=== PATIENT | male | born 1985 | race Caucasian/White ===

== ENCOUNTER 2020-02-08 10:00 | Emergency (ER) | payer OTHER ==
[2020-02-08 10:10] VITALS: Ht 190.5 cm
[2020-02-08 10:45] LABS: BASOPHILS 0.5 % (0-2); EOSINOPHILS 0.7 % (0-7); HEMATOCRIT 47.5 % (42.0-54.0); IMMATURE GRANULOCYTES 0.7 % (0-5); LYMPHOCYTES 27.6 % (15-50); MCHC 33.7 g/dL (31.0-37.0); MCV 86.1 fL (80.0-100.0); MEAN PLATELET VOLUME 10.2 fL (7.4-10.4); MONOCYTES 6.8 % (2-11); NEUTROPHILS 63.7 % (40-80); PLATELET COUNT 288 10x3/uL (130-400); RBC 5.52 10x6/uL (4.20-6.10); RDW 13.1 % (11.5-14.5); WBC 10.1 10x3/uL (4.8-10.8)
[2020-02-08 11:00] LABS: CALC OSMOLALITY 274 mosm/kg (275-300); CALCIUM 9.5 mg/dL (8.5-10.1); CARBON DIOXIDE 27.1 mmol/L (21.0-32.0); CHLORIDE - SERUM 104 mmol/L (98-107); CREATININE - SERUM 1.1 mg/dL (0.6-1.3); GLUCOSE 92 mg/dL (74-106); SODIUM 138 mmol/L (136-145); UREA NITROGEN 11 mg/dL (7-18); eGFR NON AFRICAN AMERICAN 82 mL/min (90-120)
[2020-02-08 11:06] LABS: ALBUMIN 4.4 g/dL (3.4-5.0); ALKALINE PHOSPHATASE 91 U/L (30-120); ALT (SGPT) 67 U/L (10-68); BILIRUBIN - TOTAL 0.47 mg/dL (0.2-1.3); PROTEIN - SERUM 7.8 g/dL (6.4-8.2)
[2020-02-08 11:23] VITALS: BP 131/70
== END 2020-02-08 11:23 | disposition home or self-care (01) ==
LOC: D.ER 10:00
PROVIDERS: Family Medicine
DX: M25.561 Pain in right knee (principal); F31.9 Bipolar disorder, unspecified; F43.10 Post-traumatic stress disorder, unspecified; M79.10 Myalgia, unspecified site; F25.9 Schizoaffective disorder, unspecified

== ENCOUNTER 2020-03-04 16:02 | Emergency (ER) | payer OTHER ==
[~2020-03-04] VITALS: Ht 190.5 cm; Wt 100.0 kg
[2020-03-04 16:17] VITALS: BP 144/62; Ht 190.5 cm; Wt 100.0 kg
[2020-03-04 16:48] LABS: BASOPHILS 0.3 % (0-2); EOSINOPHILS 3.5 % (0-7); HEMATOCRIT 43.8 % (42.0-54.0); HEMOGLOBIN 15.1 g/dL (13.5-17.5); IMMATURE GRANULOCYTES 0.8 % (0-5); LYMPHOCYTES 23.8 % (15-50); MCH 28.7 pg (26.0-34.0); MCHC 34.5 g/dL (31.0-37.0); MCV 83.1 fL (80.0-100.0); MEAN PLATELET VOLUME 10.6 fL (7.4-10.4); MONOCYTES 10.6 % (2-11); PLATELET COUNT 284 10x3/uL (130-400); RBC 5.27 10x6/uL (4.20-6.10); RDW 12.9 % (11.5-14.5); WBC 11.6 10x3/uL (4.8-10.8)
[2020-03-04 17:03] LABS: CALC OSMOLALITY 280 mosm/kg (275-300); CALCIUM 9.5 mg/dL (8.5-10.1); CARBON DIOXIDE 26.6 mmol/L (21.0-32.0); CHLORIDE - SERUM 101 mmol/L (98-107); CREATININE - SERUM 1.1 mg/dL (0.6-1.3); GLUCOSE 104 mg/dL (74-106); POTASSIUM - SERUM 3.2 mmol/L (3.5-5.1); SODIUM 139 mmol/L (136-145); UREA NITROGEN 22 mg/dL (7-18); eGFR NON AFRICAN AMERICAN 82 mL/min (90-120)
[2020-03-04 17:24] LABS: ALBUMIN 4.4 g/dL (3.4-5.0); ALKALINE PHOSPHATASE 77 U/L (30-120); ALT (SGPT) 45 U/L (10-68); BILIRUBIN - TOTAL 0.63 mg/dL (0.2-1.3); MAGNESIUM - SERUM 1.7 mg/dL (1.8-2.4); PROTEIN - SERUM 7.3 g/dL (6.4-8.2)
[2020-03-04 17:41] LABS: CKMB 18.9 U/L (0.0-3.6); CREATINE KINASE 1883 UL (21-232); TROPONIN-I < 0.017 ng/mL (0.000-0.060)
[2020-03-04] MEDS ORDERED: ZPAK PO (18:11)
[2020-03-04] MEDS ORDERED: AUGMENTIN 875-11 TAB PO (18:11)
== END 2020-03-04 18:27 | disposition left against medical advice (07) ==
LOC: D.ER 16:02
PROVIDERS: Family Medicine
DX: J18.9 Pneumonia, unspecified organism (principal); E86.0 Dehydration; E87.6 Hypokalemia; R09.02 Hypoxemia; D72.829 Elevated white blood cell count, unspecified; M62.82 Rhabdomyolysis; F41.9 Anxiety disorder, unspecified; F43.10 Post-traumatic stress disorder, unspecified

== ENCOUNTER 2020-03-17 19:01 | Emergency (ER) | payer OTHER ==
[~2020-03-17] VITALS: Ht 190.5 cm; Wt 120.5 kg
[~2020-03-17 19:01] MED LIST: AUGMENTIN 875-11 TAB PO; ZPAK PO
[2020-03-17 19:10] VITALS: Ht 190.5 cm; Wt 120.5 kg
[2020-03-17] MEDS ORDERED: TRAZODONE HCL150 MG PO (19:15)
[2020-03-17] MEDS ORDERED: CELEXA20 MG PO (19:15)
[2020-03-17] MEDS ORDERED: HYDROCODON-ACE1 EAC7 PO (19:16)
[2020-03-17 20:10] LABS: BILIRUBIN NEGATIVE (NEGATIVE); KETONE NEGATIVE (NEGATIVE); NITRITE NEGATIVE (NEGATIVE); UROBILINOGEN NORMAL (NORMAL)
[2020-03-17 20:31] LABS: UDS - AMPHET NEGATIVE QUAL (NEGATIVE); UDS - BARB NEGATIVE QUAL (NEGATIVE); UDS - BENZO NEGATIVE QUAL (NEGATIVE); UDS - COCAINE NEGATIVE QUAL (NEGATIVE); UDS - OPIATE NEGATIVE QUAL (NEGATIVE); UDS - PCP NEGATIVE QUAL (NEGATIVE); UDS - THC NEGATIVE QUAL (NEGATIVE)
[2020-03-17 21:53] LABS: BASOPHILS 0.4 % (0-2); HEMATOCRIT 48.7 % (42.0-54.0); HEMOGLOBIN 16.8 g/dL (13.5-17.5); IMMATURE GRANULOCYTES 0.5 % (0-5); LYMPHOCYTES 27.4 % (15-50); MCH 29.3 pg (26.0-34.0); MCHC 34.5 g/dL (31.0-37.0); MEAN PLATELET VOLUME 10.6 fL (7.4-10.4); MONOCYTES 8.3 % (2-11); NEUTROPHILS 62.4 % (40-80); PLATELET COUNT 296 10x3/uL (130-400); RBC 5.73 10x6/uL (4.20-6.10); RDW 13.3 % (11.5-14.5); WBC 11.3 10x3/uL (4.8-10.8)
[2020-03-17 21:57] LABS: CALC OSMOLALITY 272 mosm/kg (275-300); CALCIUM 9.3 mg/dL (8.5-10.1); CARBON DIOXIDE 28.4 mmol/L (21.0-32.0); CHLORIDE - SERUM 101 mmol/L (98-107); CREATININE - SERUM 0.9 mg/dL (0.6-1.3); GLUCOSE 98 mg/dL (74-106); POTASSIUM - SERUM 3.7 mmol/L (3.5-5.1); SODIUM 136 mmol/L (136-145); UREA NITROGEN 15 mg/dL (7-18); eGFR NON AFRICAN AMERICAN > 90 mL/min (90-120)
[2020-03-17 22:04] LABS: ALBUMIN 4.5 g/dL (3.4-5.0); ALKALINE PHOSPHATASE 91 U/L (30-120); ALT (SGPT) 57 U/L (10-68); C-REACTIVE PROTEIN 0.8 mg/dL (0.0-0.9); CREATINE KINASE 113 UL (21-232); LIPASE 970 U/L (73-393)
[2020-03-17] MEDS ORDERED: BUTALB-APAP-CA1 EACH PO (22:40)
[2020-03-17 23:44] VITALS: BP 123/72
== END 2020-03-18 00:05 | disposition home or self-care (01) ==
LOC: D.ER 19:01
PROVIDERS: Family Medicine
DX: R51 Headache (principal); R10.9 Unspecified abdominal pain; R11.0 Nausea; R06.02 Shortness of breath; R07.9 Chest pain, unspecified

== ENCOUNTER 2020-09-26 01:20 | Inpatient (IN) | payer OTHER ==
[~2020-09-26] VITALS: Ht 198.1 cm; Wt 127.0 kg
[~2020-09-26 01:20] MED LIST changes: +BUTALB-APAP-CA1 EACH PO; +CELEXA20 MG PO; +ELIQUIS5 MG PO; +HYDROCODON-ACE1 EAC7 PO; +TRAZODONE HCL150 MG PO; +ULTRAM50 MG PO; +XARELTO15 MG PO
[2020-09-26 01:56] LABS: BASOPHILS 0.4 % (0-2); EOSINOPHILS 1.4 % (0-7); HEMATOCRIT 43.4 % (42.0-54.0); HEMOGLOBIN 14.7 g/dL (13.5-17.5); IMMATURE GRANULOCYTES 0.5 % (0-5); LYMPHOCYTE ABS# 2.85 10x3/uL (1.32-3.57); LYMPHOCYTES 36.1 % (15-50); MCH 28.2 pg (26.0-34.0); MCHC 33.9 g/dL (31.0-37.0); MCV 83.3 fL (80.0-100.0); MEAN PLATELET VOLUME 10.4 fL (7.4-10.4); MONOCYTES 11.1 % (2-11); NEUTROPHIL ABS# 3.99 10x3/uL (1.78-5.38); NEUTROPHILS 50.5 % (40-80); RBC 5.21 10x6/uL (4.20-6.10); RDW 13.8 % (11.5-14.5); WBC 7.9 10x3/uL (4.8-10.8)
[2020-09-26 02:00] LABS: PLATELET COUNT 247 10x3/uL (130-400)
[2020-09-26 02:06] LABS: APTT 43.3 SECONDS (22.8-39.4); INR 2.83 (0.85-1.17); PROTIME 27.7 SECONDS (11.6-15.0)
[2020-09-26 02:07] LABS: CALC OSMOLALITY 268 mosm/kg (275-300); CALCIUM 8.9 mg/dL (8.5-10.1); CARBON DIOXIDE 24.8 mmol/L (21.0-32.0); CHLORIDE - SERUM 99 mmol/L (98-107); GLUCOSE 92 mg/dL (74-106); POTASSIUM - SERUM 3.6 mmol/L (3.5-5.1); SODIUM 134 mmol/L (136-145); UREA NITROGEN 16 mg/dL (7-18); eGFR NON AFRICAN AMERICAN > 90 mL/min (90-120)
[2020-09-26 02:10] LABS: ALBUMIN 3.9 g/dL (3.4-5.0); ALKALINE PHOSPHATASE 88 U/L (30-120); ALT (SGPT) 35 U/L (10-68); BILIRUBIN - TOTAL 0.29 mg/dL (0.2-1.3); CREATINE KINASE 78 UL (21-232); PROTEIN - SERUM 7.5 g/dL (6.4-8.2)
[2020-09-26 02:16] LABS: D-DIMER-QUANTITATIVE 2.1 ug/mLFEU (0.20-0.54)
--- NOTE | 2020-09-26 02:22 | NUR ---
CRITICAL LABS GIVEN TO PROVIDER.
--- NOTE | 2020-09-26 05:10 | NUR ---
PATIENT REPORT ATTEMPTED AT THIS TIME.
[2020-09-26 06:09] VITALS: BP 106/51; BMI 32.4
[2020-09-26 09:17] VITALS: BP 120/72
--- NOTE | 2020-09-26 10:30 | NUR ---
GAVE PATIENT MORPHINE 4 MG IVP OVER 3 MINUTES. TOLERATED WITH NO PROBLEMS. IV INTACT. CALL LIGHT WITHIN REACH.
[2020-09-26 12:08] VITALS: BP 128/75
--- NOTE | 2020-09-26 14:46 | NUR ---
NOTIFIED DR. STROUD OF POST TIBIAL DVT AND POPLITEAL DVT. WAS CALLED BY RADIOLOGY PHYSICIAN. PATIENT IS ALREADY ON LOVENOX. NO NEW ORDERS AT THIS TIME.
--- NOTE | 2020-09-26 15:00 | NUR ---
PATIENT STATES IV IS WET FROM SHOWER. FLUSHED IV AND BLOOD DRAWN BACK. IV WORKING FINE. ASKED PATIENT THE IV WAS BOTHERING OR HURTING HIM I COULD CHANGE IT, BUT THAT IT IS WORKING FINE. STATED NO HE DIDNT NEED IT CHANGED LONG IT IS OK. CHANGED DRESSING ON IV. ALSO EXPLAINED I WAS TOLD HE NEEDED PAIN MEDS. STATED " IT WOULD BE NICE." GAVE PATIENT 4 MG IVP OVER 4 MIN AT THIS TIME. NO OTHER COMPLAINTS. CALL LIGHT WITHIN REACH.
--- NOTE | 2020-09-26 16:12 | NUR ---
GEOLOGY FACULTY MEMBER STATED THAT PATIENT WANTS HIS MEDS SO HE CAN JUST GO TO SLEEP. EXPLAINED HE DOESNT HAVE ANY MEDS AND THAT IT IS NOT TIME FOR PAIN MEDS AT THIS TIME. ASKED GEOLOGY FACULTY MEMBER TO TELL PATIENT. STILL WAITING PATIENT FINANCIAL COUNSELOR BACK FROM ON NICOTINE PATCH.
[2020-09-26 16:49] VITALS: BP 124/72
--- NOTE | 2020-09-26 18:55 | NUR ---
PATIENT STATED HE WANTED AN INFORMAL RESOLUTION FORM. EXPLAINED IT IS A FORM FOR COMPLAINTS. TOLD PATIENT THAT IF HE HAD A COMPLAINT HE COULD SPEAK WITH MOTOR INSPECTION MECHANIC. DIALED 1441 AND TOLD HIM TO SPEAK WITH JOCE. LEFT THE ROOM SO PATIENT COULD HAVE PRIVACY.
--- NOTE | 2020-09-26 19:15 | NUR ---
JENS HOBSON CALLED AND STATED THAT PATIENT WAS COMPLAINING ABOUT NOT GETTING PAIN MED EARLIER AND THAT HE WANTED A FORM FOR COMPLAINTS. EXPLAINED THAT WHEN HE ASKED FOR PAIN MEDS IT WASNT TIME TO GIVE THEM AND THAT I HAD ASKED THE SUBMARINE DIVER TO LET HIM KNOW. ALSO I DIDNT KNOW WHAT FORM HE WAS TALKING ABOUT AND THAT SHE SAID JUST TO GIVE HIM A PIECE OF PAPER SO THAT HE COULD WRITE DOWN HIS COMPLAINTS AND GIVE THEM TO THE FIRE SUPPRESSION CAPTAIN. ALSO THAT I COULD WRITE MY SIDE DOWN ON THE PAPER WELL. I STATED I WOULD RATHER NOT WRITE DOWN MY SIDE BC I HAVENT DONE ANYTHING THAT I AM NOT ABLE TO GIVE HIM HIS PAIN MEDS IF IT ISNT TIME AND THAT IF HE HAS OTHER COMPLAINTS I DID MY BEST TO TAKE CARE OF HIM WITH THE STAFF THAT WE HAD AND THE PATIENTS I HAD.
[2020-09-26 19:32] VITALS: BP 135/84
[2020-09-26 20:13] VITALS: BP 115/76
[2020-09-27 04:57] VITALS: BP 113/67
--- NOTE | 2020-09-27 06:00 | NUR ---
PT RESTED PEACEFULLY THROUGHOUT NIGHT. BROUGHT PT COFFEE. NO OTHER NEEDS. WILL CONTINUE TO MONITOR.
--- NOTE | 2020-09-27 06:27 | NUR ---
PT HAS HAD TWO MORE BOWEL MOVEMENTS SINCE NG CLAMPED AND MINERAL GIVEN FOR A TOTAL OF THREE BM'S. FIRST TWO BM'S WERE SMALL HARD STOOLS, LAST BM MEDIUM AMOUNT OF SOFT STOOL. NG HAS BEEN CLAMPED SINCE YESTERDAY AND PT HAS HAD NO NAUSEA.
[2020-09-27 06:46] LABS: BASOPHILS 0.6 % (0-2); EOSINOPHILS 1.7 % (0-7); HEMATOCRIT 46.9 % (42.0-54.0); HEMOGLOBIN 15.4 g/dL (13.5-17.5); IMMATURE GRANULOCYTES 0.4 % (0-5); LYMPHOCYTE ABS# 2.28 10x3/uL (1.32-3.57); LYMPHOCYTES 33.1 % (15-50); MCH 27.8 pg (26.0-34.0); MCHC 32.8 g/dL (31.0-37.0); MCV 84.7 fL (80.0-100.0); MEAN PLATELET VOLUME 11.1 fL (7.4-10.4); NEUTROPHIL ABS# 3.79 10x3/uL (1.78-5.38); NEUTROPHILS 55.2 % (40-80); PLATELET COUNT 265 10x3/uL (130-400); RBC 5.54 10x6/uL (4.20-6.10); RDW 13.7 % (11.5-14.5); WBC 6.9 10x3/uL (4.8-10.8)
[2020-09-27 06:56] LABS: ALKALINE PHOSPHATASE 93 U/L (30-120); ALT (SGPT) 35 U/L (10-68); BILIRUBIN - TOTAL 0.27 mg/dL (0.2-1.3); CALC OSMOLALITY 267 mosm/kg (275-300); CALCIUM 9.2 mg/dL (8.5-10.1); CARBON DIOXIDE 26.8 mmol/L (21.0-32.0); CHLORIDE - SERUM 100 mmol/L (98-107); CREATININE - SERUM 0.9 mg/dL (0.6-1.3); GLUCOSE 90 mg/dL (74-106); PHOSPHOROUS 3.6 mg/dL (2.5-4.9); PROTEIN - SERUM 7.2 g/dL (6.4-8.2); SODIUM 134 mmol/L (136-145); UREA NITROGEN 12 mg/dL (7-18); eGFR NON AFRICAN AMERICAN > 90 mL/min (90-120)
[2020-09-27 06:58] LABS: POTASSIUM - SERUM 4.5 mmol/L (3.5-5.1)
--- NOTE | 2020-09-27 07:15 | NUR ---
ASKED PT IF HE WOULD LIKE TO TALK TO CEMENT GUN OPERATOR JACK THIS MORNING CONCERNING THE COMPLAINTS HE HAD AT SHIFT CHANGE YESTERDAY. PT STATED HE NO LONGER HAD AN ISSUE AND DID NOT WANT TO MAKE ANY COMPLAINTS. I ASKED HIM IF EVERYTHING HAD BEEN RESOLVED AND HE STATED "YES". THIS CONVERSATION WAS WITNESSED BY DAYSHIFT NURSE BENEDICTO DURING OUR BEDSIDE SHIFT REPORT.
--- NOTE | 2020-09-27 08:00 | NUR ---
ASSESSMENT PER FLOW SHEET. PATIENT IS WITHOUT DISTRESS.ANXIOUS THIS AM. MONITOR
[2020-09-27 09:04] VITALS: BP 122/74
[2020-09-27 10:25] LABS: INR 1.07 (0.85-1.17); PROTIME 12.9 SECONDS (11.6-15.0)
[2020-09-27 12:21] VITALS: BP 131/68
--- NOTE | 2020-09-27 15:46 | NUR ---
TALKED WITH ARMANI CARTWRIGHT APN RE.. PAIN IN FOOT. PATIENT WANTS TO TRY SOMETHING ELSE FOR PAIN,SEE ORDERS
[2020-09-27 16:13] VITALS: BP 125/74
[2020-09-27 19:51] VITALS: BP 123/74
[2020-09-28 04:44] VITALS: BP 121/89
[2020-09-28 04:52] LABS: BASOPHILS 0.5 % (0-2); EOSINOPHILS 1.9 % (0-7); HEMATOCRIT 46.9 % (42.0-54.0); HEMOGLOBIN 15.5 g/dL (13.5-17.5); IMMATURE GRANULOCYTES 0.8 % (0-5); LYMPHOCYTE ABS# 2.69 10x3/uL (1.32-3.57); LYMPHOCYTES 42.2 % (15-50); MCH 27.7 pg (26.0-34.0); MCV 83.8 fL (80.0-100.0); MEAN PLATELET VOLUME 10.8 fL (7.4-10.4); NEUTROPHIL ABS# 2.78 10x3/uL (1.78-5.38); NEUTROPHILS 43.6 % (40-80); PLATELET COUNT 272 10x3/uL (130-400); RDW 13.6 % (11.5-14.5); WBC 6.4 10x3/uL (4.8-10.8)
[2020-09-28 05:08] LABS: CALC OSMOLALITY 269 mosm/kg (275-300); CARBON DIOXIDE 26.8 mmol/L (21.0-32.0); CHLORIDE - SERUM 100 mmol/L (98-107); GLUCOSE 87 mg/dL (74-106); PHOSPHOROUS 3.6 mg/dL (2.5-4.9); POTASSIUM - SERUM 3.9 mmol/L (3.5-5.1); SODIUM 136 mmol/L (136-145); UREA NITROGEN 11 mg/dL (7-18); eGFR NON AFRICAN AMERICAN > 90 mL/min (90-120)
[2020-09-28 05:09] LABS: INR 1.09 (0.85-1.17)
--- NOTE | 2020-09-28 07:02 | NUR ---
Patient had pain that was managed with the prescribed pain medication, he took a shower this morning.
--- NOTE | 2020-09-28 07:38 | NUR ---
MEDS ORDERED FOR NAUSEA. PATIENT HAVING BROWN COLORED EMESIS
[2020-09-28 09:07] VITALS: BP 117/60
--- NOTE | 2020-09-28 10:55 | NUR ---
PATIENT ANGRY ABOUT CARE. HE STATES WE ARE NOT DOING ANYTHING FOR HIM. JACK SANCHEZ RN EXPLAINED COUMADIN AND LABS AND LEVELS TO HIM. HE WAS ALSO EXPLAINED RISK OF HIM LEAVING AMA. HE STATES HE KNOWS HE COULD FROM BLOOD CLOTS. AMA FORM SIGNED. [facility]FFERENT TREAT[facility] OPTIONS.ATTEMPTED TO CALL ARMANI CARTWRIGHT APN,KELLY ADAMES. WILL ATTEMPT CALL AGAIN.
[2020-09-28] MEDS ORDERED: TRAZODONE HCL300 MG PO (11:23)
[2020-09-28] MEDS ORDERED: TOFRANIL25 MG PO (11:23)
[2020-09-28] MEDS ORDERED: ABILIFY10 MG PO (11:24)
--- NOTE | 2020-09-28 11:24 | NUR ---
1105-CALLED TO ROOM TO DISCUSS PT GOING AMA. STATES WE ARE NOT CONTROLLING HIS PAIN TO MEET HIS NEEDS NOR DOING ANYTHING REGARDING HIS BLOOD CLOT IN HIS LEGS. EXPLAINED FREQ OF PAIN MEDS-NORCO AND MORPHINE- AND REGIMEN OF COUMADIN AND TAKING TIME TO GET INR UP TO GOAL ( TODAY IS 1.09 WITH GOAL OF 2.5). AMA FORM SIGNED AND WITNESSED. ASKED TO PLEASE RESTART HIS PTSD MEDS-CALLED PHARMACY X 2-[facility] DRUG LIST. WILL KEEP PT INFORMED 1120-GOT CURRENT LIST AND TALKED TO KARISSA BEST-INPUTTED TRAZAONE, ABILITY, AND IMIPRAMINE INTO MED REC TO BE REVIEWED. PT AWARE.
[2020-09-28 12:59] VITALS: BP 141/75; BP 91/57
--- NOTE | 2020-09-28 13:00 | NUR ---
IV RESITED TO RIGHT WRIST, 22G.
[2020-09-28 17:18] VITALS: BP 121/74
--- NOTE | 2020-09-28 19:25 | NUR ---
DECIDED TO STAY TODAY. PAIN BETTER CONTROLLED WITH GEOLOGICAL SURVEY FIELD ASSISTANT.CONT PLAN OF CARE
[2020-09-28 20:06] VITALS: BP 122/82
[2020-09-29 00:27] VITALS: BP 118/76
--- NOTE | 2020-09-29 02:05 | NUR ---
Patient has appeared to havew his pain well managed with the YARD WAREHOUSE WORKER pump, he has voiced no concerns. His mother came tomight and brought him some food. He did complain of nausea but it has been managed with the prescribed Zofran. He is currently resting in bed with his eyes closed.
[2020-09-29 04:00] VITALS: BP 128/64
[2020-09-29 06:15] LABS: BASOPHILS 0.7 % (0-2); EOSINOPHILS 2.3 % (0-7); HEMATOCRIT 44.9 % (42.0-54.0); HEMOGLOBIN 14.5 g/dL (13.5-17.5); IMMATURE GRANULOCYTES 0.5 % (0-5); LYMPHOCYTE ABS# 2.71 10x3/uL (1.32-3.57); LYMPHOCYTES 44.6 % (15-50); MCH 27.4 pg (26.0-34.0); MCHC 32.3 g/dL (31.0-37.0); MCV 84.9 fL (80.0-100.0); MEAN PLATELET VOLUME 10.9 fL (7.4-10.4); MONOCYTES 9.9 % (2-11); NEUTROPHIL ABS# 2.55 10x3/uL (1.78-5.38); PLATELET COUNT 245 10x3/uL (130-400); RBC 5.29 10x6/uL (4.20-6.10); RDW 13.8 % (11.5-14.5); WBC 6.1 10x3/uL (4.8-10.8)
[2020-09-29 06:29] LABS: CALC OSMOLALITY 271 mosm/kg (275-300); CALCIUM 8.9 mg/dL (8.5-10.1); CARBON DIOXIDE 28.7 mmol/L (21.0-32.0); CHLORIDE - SERUM 102 mmol/L (98-107); CREATININE - SERUM 0.9 mg/dL (0.6-1.3); GLUCOSE 85 mg/dL (74-106); PHOSPHOROUS 4.4 mg/dL (2.5-4.9); POTASSIUM - SERUM 4.4 mmol/L (3.5-5.1); SODIUM 137 mmol/L (136-145); UREA NITROGEN 11 mg/dL (7-18); eGFR NON AFRICAN AMERICAN > 90 mL/min (90-120)
[2020-09-29 06:45] LABS: INR 1.46 (0.85-1.17); PROTIME 16.4 SECONDS (11.6-15.0)
[2020-09-29 08:12] VITALS: BP 125/82
--- NOTE | 2020-09-29 08:45 | NUR ---
PATIENT IN BED WITH IV INTACT. NO COMPLAINTS OR SIGNS OF DISTRESS. CALL LIGHT WITHIN REACH.
[2020-09-29 12:24] VITALS: BP 128/84
[2020-09-29 17:04] VITALS: BP 119/79
--- NOTE | 2020-09-29 18:45 | NUR ---
PATIENT IN BED WITH IV INTACT. NO COMPLAINTS OR SIGNS OF DISTRESS. CALL LIGHT WITHIN REACH.
[2020-09-29 20:18] VITALS: BP 102/60; BP 129/83
[2020-09-30 00:29] VITALS: BP 134/78
[2020-09-30 04:00] VITALS: BP 142/84
--- NOTE | 2020-09-30 05:16 | NUR ---
Patient has had pain controlled with the prescribed pain medication, he did not sleep much the night, he is currently getting a shower.
[2020-09-30 06:56] LABS: BASOPHILS 0.3 % (0-2); EOSINOPHILS 1.7 % (0-7); HEMATOCRIT 44.8 % (42.0-54.0); HEMOGLOBIN 14.7 g/dL (13.5-17.5); IMMATURE GRANULOCYTES 0.2 % (0-5); LYMPHOCYTE ABS# 2.78 10x3/uL (1.32-3.57); LYMPHOCYTES 46.2 % (15-50); MCH 27.7 pg (26.0-34.0); MCHC 32.8 g/dL (31.0-37.0); MCV 84.5 fL (80.0-100.0); MEAN PLATELET VOLUME 10.9 fL (7.4-10.4); MONOCYTES 8.5 % (2-11); NEUTROPHILS 43.1 % (40-80); PLATELET COUNT 239 10x3/uL (130-400); RDW 13.7 % (11.5-14.5)
[2020-09-30 07:07] LABS: INR 1.73 (0.85-1.17); PROTIME 18.8 SECONDS (11.6-15.0)
[2020-09-30 07:17] LABS: ANION GAP 12.8 mmol/L (8-16); CARBON DIOXIDE 26.3 mmol/L (21.0-32.0); MAGNESIUM - SERUM 1.9 mg/dL (1.8-2.4); PHOSPHOROUS 4.7 mg/dL (2.5-4.9); POTASSIUM - SERUM 4.1 mmol/L (3.5-5.1)
[2020-09-30 07:19] LABS: CREATININE - SERUM 1.2 mg/dL (0.6-1.3)
--- NOTE | 2020-09-30 08:30 | NUR ---
PATIENT ASSESSMENT COMPLETE, VS STABLE. SAYS HE IS NAUSEATED. ZOFRAN GIVEN. ALSO STATED THAT IT IS GETTING HARDER TO BREATHE. O2 SAT 100 % ON RA. NO WHEEZING OR COUGHING. CHEST SOUNDS CLEAR. NO SIGNS OF SOB OR ANY PROBLEMS BREATHING AT THIS TIME. EXPLAINED TO PATIENT TO CONTINUE IS AND TO CONTINUE TO GET OUT OF BED AND MOVE AROUND LIKE HE HAS BEEN DOING AND THAT I WOULD NOTIFY ORACLE SECURITY CONSULTANT WHEN I SEE HER. VERBALIZED UNDERSTANDING. FAMILY AT BEDSIDE. ALSO WONDERING WHY PATIENT IS GETTING NAUSEATED AND WHY HE IS HAVING HEADACHES. EXPLAINED IT COULD BE FROM THE DILAUDID BUT TO ALSO MENTION IT TO THE PHYSICIAN. VERBALIZED UNDERSTANDING. WILL CONTINUE TO MONITOR. CALL IGHT WITHIN REACH.
[2020-09-30 08:31] VITALS: BP 114/75
--- NOTE | 2020-09-30 08:55 | NUR ---
ORDERED BISCUITS AND GRAVY THROUGH DIETARY MESSAGE AT THIS TIME PER PATIENT REQUEST.
--- NOTE | 2020-09-30 09:05 | NUR ---
DR. JONES CAME BY AND STATED SHE SAW THE RASH ON THE PATIENTS SHOULDER AND BUMPS ON THE CHEST. SHE SAID IT COULD BE CAUSED BY THE COUMADIN BUT THAT SHE DIDNT THINK SO BECAUSE IT USUSALLY DOESNT START IN THAT AREA. ALSO ASKED TO NOTIFY NILAY BEST ABOUT IT. LET HER KNOW ABOUT PATIENTS COMPLAINTS OR NAUSEA AND SAYING ITS HARDER FOR HIM TO BREATHE. NO NEW ORDERS AT THIS TIME. PATIENT SITTING UP IN BED EATING BREAKFAST WITH NO COMPLAINTS OR PROBLEMS. CALL LIGHT WITHIN REACH.
[2020-09-30 12:52] VITALS: BP 134/83
--- NOTE | 2020-09-30 12:55 | NUR ---
PATIENT TOOK MAG CITRATE. STATED HE DID NOT WANT SUPPOSITORY AT THIS TIME. WOULD WAIT TO SEE IF NEEDED AFTER MAG CITRATE. NO COMPLAINTS OR SIGNS OF DISTRESS. CALL LIGHT WITHIN REACH.
[2020-09-30 13:18] VITALS: Ht 198.1 cm; Wt 127.0 kg
--- NOTE | 2020-09-30 14:45 | NUR ---
PATIENT GETTING 1 TIME DOSE OF TORADOL FOR MIGRAINE. STATED HE HAD A MIGRAINE AND TYLENOL IS NOT WORKING ANYMORE. CALLED NILAY. ORDER RECIEVED.
--- NOTE | 2020-09-30 16:57 | NUR ---
PATIENT UP AMBULATING IN IBARRA AT THIS TIME.
[2020-09-30 16:58] VITALS: BP 133/76
--- NOTE | 2020-09-30 18:23 | NUR ---
PATIENT HAD BM. REFUSED SUPPOSITORY. ZOFRAN DRIP STARTED. IV INTACT. NO COMPLAINTS OR SIGNS OF DISTRESS. CALL LIGHT WITHIN REACH.
[2020-09-30 20:00] VITALS: BP 113/67
--- NOTE | 2020-09-30 23:00 | NUR ---
PT C/O NAUSEA AFTER HE ATE 6 ICE CREAMS AND A SANDWICH TRAY. PT IS ON A ZOFRAN DRIP. EXPLAINED THAT HE IS ALREADY GETTING CONTINUOUS IV MEDS FOR NAUSEA AND SUGGESTED MAYBE HE SHOULD QUIT EATING SO MUCH. NO OTHER NEEDS. PT STATES HE IS GOING TO TRY TO GO TO SLEEP NOW.
[2020-10-01 04:00] VITALS: BP 116/58
[2020-10-01 06:42] LABS: BASOPHILS 0.5 % (0-2); EOSINOPHILS 2.4 % (0-7); HEMATOCRIT 43.2 % (42.0-54.0); IMMATURE GRANULOCYTES 0.7 % (0-5); LYMPHOCYTE ABS# 2.21 10x3/uL (1.32-3.57); LYMPHOCYTES 37.3 % (15-50); MCH 27.5 pg (26.0-34.0); MCHC 32.4 g/dL (31.0-37.0); MCV 84.9 fL (80.0-100.0); MEAN PLATELET VOLUME 10.8 fL (7.4-10.4); MONOCYTES 13.5 % (2-11); NEUTROPHILS 45.6 % (40-80); PLATELET COUNT 220 10x3/uL (130-400); RBC 5.09 10x6/uL (4.20-6.10); RDW 13.6 % (11.5-14.5); WBC 5.9 10x3/uL (4.8-10.8)
[2020-10-01 07:03] LABS: CALC OSMOLALITY 277 mosm/kg (275-300); CALCIUM 8.9 mg/dL (8.5-10.1); CHLORIDE - SERUM 103 mmol/L (98-107); GLUCOSE 83 mg/dL (74-106); MAGNESIUM - SERUM 2.3 mg/dL (1.8-2.4); POTASSIUM - SERUM 4.4 mmol/L (3.5-5.1); SODIUM 139 mmol/L (136-145); UREA NITROGEN 16 mg/dL (7-18); eGFR NON AFRICAN AMERICAN > 90 mL/min (90-120)
[2020-10-01 07:21] LABS: INR 2.69 (0.85-1.17); PROTIME 26.6 SECONDS (11.6-15.0)
--- NOTE | 2020-10-01 07:30 | MORECARE ---
CASE MANAGEMENT DISCHARGE SUMMARY PATIENT: LYNETTE GRIFFIN UNIT: [id number] ADM DATE: 09/26/20 AGE: 34 : 89 SEX: M ROOM/BED: D.2212 AUTHOR: DARIUSZ STOKES PHYSICIAN: REFERRING PHYSICIAN: BRIA GONZALEZ MD DATE OF SERVICE: 10/01/20 Discharge Plan Patient Name: LYNETTE [facility]RIFFIN [facility] [facility] 1985 Planned Disposition: Home or Self Care Anticipated Discharge Date: Discharge Date: Expected LOS: Initial Reviewer: [email or web address] Initial Review Date: 09/26/2020 Generated: 10/01/20 8:29 am DCPIA - Discharge Planning Initial Assessment Updated by [email or web address]: Tuyet Nnues on 10/01/20 7:27 am * Is the patient Alert and Oriented? Yes * PCP KENT * Pharmacy [facility] * Preadmission Environment Home with Family * ADLs Independent * Equipment None * List name and contact numbers for known caregivers / representatives who currently or will assist patient after discharge: FINN GRIFFIN ( MOM) [phone] * Verbal permission to speak to the caregivers and representatives has been obtained from the patient. N/A * Community resources currently utilized None * Additional services required to return to the preadmission environment? Yes * Can the patient safely return to the preadmission environment? Yes * Has this patient been hospitalized within the prior 30 days at any hospital? No External Providers External Provider: [facility] [place] Contact Date: Service Request Date: Service Type: Resolution: Reviewer: Comments: Patient Name: LYNETTE GRIFFIN Page [phone] at 0730 All edits/amendments must be made on the electronic document DICTATION DATE: 10/01/20729 CURATOR: ISMAEL 10/01/20729 RPT#: [id number] DC DATE: STATUS: ADM IN [facility] [address] [place] [address] END OF REPORT
--- NOTE | 2020-10-01 07:37 | MORECARE ---
CASE MANAGEMENT DISCHARGE SUMMARY PATIENT: LYNETTE GRIFFIN UNIT: [id number] ADM DATE: 09/26/20 AGE: 34 : 89 SEX: M ROOM/BED: D.2212 AUTHOR: DARIUSZ STOKES PHYSICIAN: REFERRING PHYSICIAN: BRIA GONZALEZ MD DATE OF SERVICE: 10/01/20 Discharge Plan Patient Name: LYNETTE GRIFFIN Facility: [facility]:[place] : 1985 Planned Disposition: Home or Self Care Anticipated Discharge Date: Discharge Date: Expected LOS: Initial Reviewer: [email or web address] Initial Review Date: 09/26/2020 Generated: 10/01/20 8:36 am Comments DCP- Discharge Planning Updated by [email or web address]: Tuyet Nunes on 10/01/20 6:[address] LATE ENTRY 09/30/20 @ 1445 Patient Name: LYNETTE GRIFFIN Admission Status: ER Accout number: [id number] Admission Date: 09-26-2020 : 1985 Admission Diagnosis:CHRONIC EMBOLISM AND THROMBOSIS OF RIGHT POPLITEAL VEIN Attending: STORM Current LOS: 5 Anticipated DC Date: Planned Disposition: Home or Self Care Primary Insurance: [employer] MANAGED MEDICAID Discharge Planning Comments: . CM met with patient to complete initial dc planning assessment. CM educated patient on the CM role and verbal consent given by patient to complete assessment. Patient lives at home with his family where he is independent with his care. At discharge patient plans to return home and feels this is a safe discharge. CM discussed availability of home health, rehab services, and medical equipment. In the past his insurance will not cover Eliquis and Xarelto. I will call Rio and Mitch to see if there is anything that could be done to help him. If he goes home on Coumadin I have spoken with him about the home INR monitoring system and he is interested in that if his insurance will pay for it. I called [facility] and faxed over clinical to see if his insurance will pay for it. CM will continue to follow and will assist as needed with dc plans/needs Senior Reservoir Engineer: Tuyet Nunes DCPIA - Discharge Planning Initial Assessment Updated by [email or web address]: Tuyet Nunes on 10/01/20 7:27 am * Is the patient Alert and Oriented? Yes * PCP EKNT * [facility]acy [facility] * Preadmission Environment Home with Family * ADLs Independent * Equipment None * List name and contact numbers for known caregivers / representatives who currently or will assist patient after discharge: FINN GRIFFIN ( MOM) [phone] * Verbal permission to speak to the caregivers and representatives has been obtained from the patient. N/A * Community resources currently utilized None * Additional services required to return to the preadmission environment? Yes * Can the patient safely return to the preadmission environment? Yes * Has this patient been hospitalized within the prior 30 days at any hospital? No Last DP export: 10/01/20 6:30 a Patient Name: LYNETTE GRIFFIN Page [id number] at 0737 All edits/amendments must be made on the electronic document DICTATION DATE: 10/01/20735 FINISH OPENER: ISMAEL 10/01/20735 RPT#: [id number] DC DATE: STATUS: ADM IN [facility] [address] [place] [address] END OF REPORT
[2020-10-01 09:23] VITALS: BP 136/71
[2020-10-01] MEDS ORDERED: MIRALAX17 GM PO (09:44)
[2020-10-01] MEDS ORDERED: Coumadin [PBKC] PO (09:51)
--- NOTE | 2020-10-01 12:20 | NUR ---
PATIENT RECIEVED DC INSTRUCTIONS. VERBALIZED UNDERSTANDING. NO QUESTIONS AT THIS TIME. IV REMOVED WITH CATH TIP INTACT. PATIENT RECIEVED PRESCRIPTION FOR COUMADIN. FAMILY AT SIDE. PATIENT REFUSED WC AT THIS TIME.
[2020-10-01 12:34] VITALS: BP 144/72
--- NOTE | 2020-10-01 13:36 | MORECARE ---
CASE MANAGEMENT DISCHARGE SUMMARY PATIENT: LYNETTE GRIFFIN UNIT: [id number] ADM DATE: 09/26/20 AGE: 34 : 89 SEX: M ROOM/BED: D.2212 AUTHOR: DIVYADOC PHYSICIAN: REFERRING PHYSICIAN: BRIA GONZALEZ MD DATE OF SERVICE: 10/01/20 Discharge Plan Patient Name: LYNETTE GRIFFIN Facility: [facility]:[place] : 1985 Planned Disposition: Home or Self Care Anticipated Discharge Date: Discharge Date: Expected LOS: Initial Reviewer: [email or web address] Initial Review Date: 09/26/2020 Generated: 10/01/20 2:35 pm Comments DCP- Discharge Planning Updated by [email or web address]: Tuyet Nunes on 10/01/20 12:[address] PATIENT WILL BE DISCHARGING WITH COUMADIN AND PER LEX WITH [facility] IF INSURANCE COVERS THE HOME INR MACHINE THEY WILL COME OUT AND GO OVER TRAINING AND EDUCATION IT WILL TAKE ABOUT A WEEK TO GET APPROVED CM WILL GO OVER THE ABOVE WITH THE PATIENT DCP- Discharge Planning Updated by [email or web address]: Tuyet Nunes on 10/01/20 6:[address] LATE ENTRY 09/30/20 @ 1445 Patient Name: LYNETTE GRIFFIN Admission Status: ER Accout number: [id number] Admission Date: 09-26-2020 : 1985 Admission Diagnosis:CHRONIC EMBOLISM AND THROMBOSIS OF RIGHT POPLITEAL VEIN Attending: STORM Current LOS: 5 Anticipated DC Date: Planned Disposition: Home or Self Care Primary Insurance: [employer] MANAGED MEDICAID Discharge Planning Comments: . CM met with patient to complete initial dc planning assessment. CM educated patient on the CM role and verbal consent given by patient to complete assessment. Patient lives at home with his family where he is independent with his care. At discharge patient plans to return home and feels this is a safe discharge. CM discussed availability of home health, rehab services, and medical equipment. In the past his insurance will not cover Eliquis and Xarelto. I will call Rio and Mitch to see if there is anything that could be done to help him. If he goes home on Coumadin I have spoken with him about the home INR monitoring system and he is interested in that if his insurance will pay for it. I called [facility] and faxed over clinical to see if his insurance will pay for it. CM will continue to follow and will assist as needed with dc plans/needs Hand Sign Writer: Tuyet Nunes DCPIA - Discharge Planning Initial Assessment Updated by [id number]: Tuyet Nunes on 10/01/20 7:27 am * Is the patient Alert and Oriented? Yes * PCP KENT * [facility]acy [facility] * Preadmission Environment Home with Family * ADLs Independent * Equipment None * List name and contact numbers for known caregivers / representatives who currently or will assist patient after discharge: FINN GRIFFIN ( MOM) [phone] * Verbal permission to speak to the caregivers and representatives has been obtained from the patient. N/A * Community resources currently utilized None * Additional services required to return to the preadmission environment? Yes * Can the patient safely return to the preadmission environment? Yes * Has this patient been hospitalized within the prior 30 days at any hospital? No Last DP export: 10/01/20 6:37 a Patient Name: LYNETTE GRIFFIN Page 76317 at 1336 All edits/amendments must be made on the electronic document DICTATION DATE: 10/01/201335 DRILL PUNCH OPERATOR: ISMAEL 10/01/201335 RPT#: [id number] DC DATE: STATUS: ADM IN [facility] [address] [place] [address] END OF REPORT
--- NOTE | 2020-10-04 08:20 | MORECARE ---
CASE MANAGEMENT DISCHARGE SUMMARY PATIENT: LYNETTE GRIFFIN UNIT: [id number] ADM DATE: 09/26/20 AGE: 34 : 89 SEX: M ROOM/BED: D.2212 AUTHOR: DIVYA,DOC PHYSICIAN: REFERRING PHYSICIAN: BRIA GONZALEZ MD DATE OF SERVICE: 10/04/20 Discharge Plan Patient Name: LYNETTE GRIFFIN Facility: [facility]:[place] : 1985 Planned Disposition: Home or Self Care Anticipated Discharge Date: Discharge Date: 10/01/2020 Expected LOS: Initial Reviewer: [email or web address] Initial Review Date: 09/26/2020 Generated: 10/04/20 9:19 am Comments DCP- Discharge Planning Updated by [email or web address]: Tuyet Nunes on 10/01/20 11:[address] PATIENT WILL BE DISCHARGING WITH COUMADIN AND PER LEX WITH [facility] IF INSURANCE COVERS THE HOME INR MACHINE THEY WILL COME OUT AND GO OVER TRAINING AND EDUCATION IT WILL TAKE ABOUT A WEEK TO GET APPROVED CM WILL GO OVER THE ABOVE WITH THE PATIENT DCP- Discharge Planning Updated by [email or web address]: Tuyet Nunes on 10/01/20 5:[address] LATE ENTRY 09/30/20 @ 1445 Patient Name: LYNETTE GRIFFIN Admission Status: ER Accout number: [id number] Admission Date: 09-26-2020 : 1985 Admission Diagnosis:CHRONIC EMBOLISM AND THROMBOSIS OF RIGHT POPLITEAL VEIN Attending: STORM Current LOS: 5 Anticipated DC Date: Planned Disposition: Home or Self Care Primary Insurance: [employer] MANAGED MEDICAID Discharge Planning Comments: . CM met with patient to complete initial dc planning assessment. CM educated patient on the CM role and verbal consent given by patient to complete assessment. Patient lives at home with his family where he is independent with his care. At discharge patient plans to return home and feels this is a safe discharge. CM discussed availability of home health, rehab services, and medical equipment. In the past his insurance will not cover Eliquis and Xarelto. I will call Rio and Mitch to see if there is anything that could be done to help him. If he goes home on Coumadin I have spoken with him about the home INR monitoring system and he is interested in that if his insurance will pay for it. I called [facility] and faxed over clinical to see if his insurance will pay for it. CM will continue to follow and will assist as needed with dc plans/needs Director Product Safety: Tuyet Nunes DCPIA - Discharge Planning Initial Assessment Updated by [email or web address]: Tuyet Nunes on 10/01/20 7:27 am * Is the patient Alert and Oriented? Yes * PCP KENT * Pharmacy [facility] * Preadmission Environment Home with Family * ADLs Independent * Equipment None * List name and contact numbers for known caregivers / representatives who currently or will assist patient after discharge: FINN GRIFFIN ( MOM) [phone] * Verbal permission to speak to the caregivers and representatives has been obtained from the patient. N/A * Community resources currently utilized None * Additional services required to return to the preadmission environment? Yes * Can the patient safely return to the preadmission environment? Yes * Has this patient been hospitalized within the prior 30 days at any hospital? No Last DP export: 10/01/20 11:36 a Patient Name: LYNETTE GRIFFIN Page 24444 at 0820 All edits/amendments must be made on the electronic document DICTATION DATE: 10/04/20819 CUSTOMER MARKETING INTERN: ISMAEL 10/04/20819 RPT#: [id number] DC DATE:10/01/20 STATUS: DIS IN [facility] [address] [place] [address] END OF REPORT
== END 2020-10-01 12:20 | disposition home or self-care (01) | DRG 300 ==
LOC: D.ER 01:20 → D.MS 03:44 → D.EDHOLD 03:44 → D.MS 05:01
PROVIDERS: Emergency Medicine; Family Medicine; Family Medicine Adult Medicine; ADMIT Family Medicine; ATTEND Family Medicine
DX: I82.531 Chronic embolism and thrombosis of right popliteal vein (principal); D68.59 Other primary thrombophilia; D68.51 Activated protein C resistance; E72.12 Methylenetetrahydrofolate reductase deficiency; Z79.01 Long term (current) use of anticoagulants; F41.8 Other specified anxiety disorders; F17.200 Nicotine dependence, unspecified, uncomplicated; F43.10 Post-traumatic stress disorder, unspecified; Z91.14 Patient's other noncompliance with medication regimen; Z86.711 Personal history of pulmonary embolism; R21 Rash and other nonspecific skin eruption

== ENCOUNTER 2020-10-02 23:51 | Emergency (ER) | payer OTHER ==
[~2020-10-02] VITALS: Ht 198.1 cm; Wt 127.0 kg
[~2020-10-02 23:51] MED LIST changes: +ABILIFY10 MG PO; +Coumadin [PBKC] PO; +MIRALAX17 GM PO; +TOFRANIL25 MG PO; +TRAZODONE HCL300 MG PO
[2020-10-02 23:54] VITALS: Ht 198.1 cm; Wt 127.0 kg
[2020-10-03 00:18] LABS: BASOPHILS 0.4 % (0-2); EOSINOPHILS 1.5 % (0-7); HEMATOCRIT 47.4 % (42.0-54.0); HEMOGLOBIN 15.6 g/dL (13.5-17.5); IMMATURE GRANULOCYTES 0.5 % (0-5); LYMPHOCYTE ABS# 2.82 10x3/uL (1.32-3.57); MCH 27.7 pg (26.0-34.0); MCHC 32.9 g/dL (31.0-37.0); MEAN PLATELET VOLUME 10.5 fL (7.4-10.4); MONOCYTES 8.7 % (2-11); NEUTROPHIL ABS# 4.15 10x3/uL (1.78-5.38); NEUTROPHILS 52.9 % (40-80); PLATELET COUNT 259 10x3/uL (130-400); RBC 5.64 10x6/uL (4.20-6.10); RDW 13.7 % (11.5-14.5)
--- NOTE | 2020-10-03 00:24 | NUR ---
DR. ADDISON NOTIFIED AND REVIEWED PT'S BEHAVIOR AND ASSESSMENT RESULTS. PT IS A LOW RISK PER DR. ADDISON. DR. ADDISON STATED TO GIVE RESOURCES TO PT AT TIME OF DISCHARGE. NO FURTHER ORDERS AT THIS TIME. RESOURCES REVIEWED WITH PT AND HE VERBALIZED UNDERSTANDING.
[2020-10-03 00:25] LABS: WBC 7.8 10x3/uL (4.8-10.8)
[2020-10-03 00:44] LABS: CALC OSMOLALITY 272 mosm/kg (275-300); CARBON DIOXIDE 29.7 mmol/L (21.0-32.0); CHLORIDE - SERUM 101 mmol/L (98-107); GLUCOSE 97 mg/dL (74-106); SODIUM 136 mmol/L (136-145); UREA NITROGEN 15 mg/dL (7-18); eGFR NON AFRICAN AMERICAN > 90 mL/min (90-120)
[2020-10-03 00:47] LABS: APTT 42.7 SECONDS (22.8-39.4)
[2020-10-03 00:49] LABS: INR 3.67 (0.85-1.17)
[2020-10-03 00:51] LABS: ALBUMIN 4.3 g/dL (3.4-5.0); ALKALINE PHOSPHATASE 90 U/L (30-120); ALT (SGPT) 117 U/L (10-68); PROTEIN - SERUM 7.9 g/dL (6.4-8.2)
[2020-10-03] MEDS ORDERED: HYDROCODON-ACE1 EAC7 PO (01:18)
[2020-10-03 01:33] VITALS: BP 140/70
== END 2020-10-03 01:33 | disposition home or self-care (01) ==
LOC: D.ER 23:51
PROVIDERS: Family Medicine
DX: M25.571 Pain in right ankle and joints of right foot (principal); I82.401 Acute embolism and thrombosis of unspecified deep veins of right lower extremity; J45.909 Unspecified asthma, uncomplicated; Z72.0 Tobacco use

== ENCOUNTER → 2020-12-29 08:26 | Outpatient (CLI) | payer OTHER ==
[2020-10-02 23:54] VITALS: BMI 32.3
== END | disposition home or self-care (01) ==
LOC: D.CN 08:26
PROVIDERS: ATTEND Pain Medicine Interventional Pain Medicine
DX: Z51.81 Encounter for therapeutic drug level monitoring (principal)

== ENCOUNTER 2021-01-14 18:10 | Emergency (ER) | payer OTHER ==
[2020-10-02 23:54] VITALS: BMI 32.3
[2021-01-14] MEDS ORDERED: ELIQUIS5 MG PO (20:37)
[2021-01-14] MEDS ORDERED: METHADONE 10 MG10 MG PO (20:37)
== END 2021-01-14 18:18 | disposition left against medical advice (07) ==
LOC: D.ER 18:10
DX: R45.851 Suicidal ideations (principal); R45.850 Homicidal ideations

== ENCOUNTER 2021-01-14 18:21 | Emergency (ER) | payer OTHER ==
[~2021-01-14] VITALS: Ht 198.1 cm; Wt 127.3 kg
[2021-01-14 18:31] VITALS: Ht 198.1 cm; Wt 127.3 kg
[2021-01-14 19:17] LABS: BACTERIA FEW HPF (<MOD); BILIRUBIN NEGATIVE (NEGATIVE); KETONE NEGATIVE mg/dL (< 1+); NITRITE NEGATIVE (NEGATIVE); PH 5.5 (5.0-8.0); SQUAMOUS EPITHELIAL 1 HPF (0-4); UROBILINOGEN NORMAL mg/dL (< 2); WHITE CELLS - URINE 2 HPF (0-1)
[2021-01-14 19:22] LABS: UDS - AMPHET NEGATIVE QUAL (NEGATIVE); UDS - BARB NEGATIVE QUAL (NEGATIVE); UDS - BENZO NEGATIVE QUAL (NEGATIVE); UDS - COCAINE NEGATIVE QUAL (NEGATIVE); UDS - OPIATE NEGATIVE QUAL (NEGATIVE); UDS - PCP NEGATIVE QUAL (NEGATIVE); UDS - THC POSITIVE QUAL (NEGATIVE)
--- NOTE | 2021-01-14 20:25 | NUR ---
DR. ADDISON NOTIFIED AND SITTER ORDERED. SITTER IN LINE OF SIGHT. NOTIFIED CHARGE NURSE AND ATTENDING IN REGARDS TO ASSESSMENT FINDINGS. RESOOURCES GIVEN AND SAFETY PLAN INTIATED.
[2021-01-14 20:32] LABS: EOSINOPHILS 0.4 % (0-7); HEMATOCRIT 44.8 % (42.0-54.0); LYMPHOCYTES 25.3 % (15-50); MCH 27.9 pg (26.0-34.0); MCHC 33.4 g/dL (31.0-37.0); MCV 83.6 fL (80.0-100.0); MEAN PLATELET VOLUME 9.5 fL (7.4-10.4); MONOCYTES 7.5 % (2-11); NEUTROPHILS 65.8 % (40-80); PLATELET COUNT 265 10x3/uL (130-400); RBC 5.36 10x6/uL (4.20-6.10); RDW 13.7 % (11.5-14.5); WBC 9.8 10x3/uL (4.8-10.8)
[2021-01-14 20:36] LABS: CALC OSMOLALITY 278 mosm/kg (275-300); CALCIUM 9.5 mg/dL (8.5-10.1); CARBON DIOXIDE 25.7 mmol/L (21.0-32.0); CHLORIDE - SERUM 103 mmol/L (98-107); CREATININE - SERUM 1.1 mg/dL (0.6-1.3); GLUCOSE 109 mg/dL (74-106); POTASSIUM - SERUM 4.1 mmol/L (3.5-5.1); SODIUM 140 mmol/L (136-145); UREA NITROGEN 10 mg/dL (7-18); eGFR NON AFRICAN AMERICAN 82 mL/min (90-120)
[2021-01-14] MEDS ORDERED: ELIQUIS5 MG PO (20:37)
[2021-01-14] MEDS ORDERED: METHADONE 10 MG10 MG PO (20:37)
[2021-01-14 20:42] LABS: ACETAMINOPHEN > 10.0 ug/mL (10.0-30.0); ALBUMIN 4.5 g/dL (3.4-5.0); ALKALINE PHOSPHATASE 88 U/L (30-120); ALT (SGPT) 35 U/L (10-68); BILIRUBIN - TOTAL 0.66 mg/dL (0.2-1.3); MAGNESIUM - SERUM 1.8 mg/dL (1.8-2.4)
[2021-01-15 02:44] LABS: SARS-CoV-2 ANTIGEN NEGATIVE- SARS-COV-2 (NEGATIVE)
[2021-01-15 17:07] VITALS: BP 132/68
== END 2021-01-15 17:09 ==
LOC: D.ER 18:21
PROVIDERS: Emergency Medicine; Family Medicine
DX: R45.851 Suicidal ideations (principal); R45.850 Homicidal ideations; F17.200 Nicotine dependence, unspecified, uncomplicated; I82.509 Chronic embolism and thrombosis of unspecified deep veins of unspecified lower extremity; F11.20 Opioid dependence, uncomplicated; Z79.01 Long term (current) use of anticoagulants